=== PATIENT | male | born 1995 | race Caucasian/White ===

== ENCOUNTER 2024-08-01 23:56 | Emergency (ER) | payer SELFPAY ==
[2024-08-02 00:06] VITALS: BP 97/58; PULSE 81; RESP 17; TEMP 36.8; O2SAT 96; BMI 25.7
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
[2024-08-02 01:16] VITALS: BP 113/69; PULSE 82; RESP 14; O2SAT 95
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
[2024-08-02] MEDS: ketorolac 30 mg/mL INJ IM (03:15)
[2024-08-02 03:45] VITALS: BP 119/71; PULSE 88; RESP 16; O2SAT 98
== END 2024-08-02 03:45 | disposition home or self-care (01) ==
PROVIDERS: Emergency Provider General Practice
DX: M25.512 Pain in left shoulder (principal); V86.99XA Unspecified occupant of other special all-terrain or other off-road motor vehicle injured in nontraffic accident, initial encounter
CPT/HCPCS: 73030; 96372; 99284; J1885